=== PATIENT | female | born 1965 | race Caucasian/White ===

== ENCOUNTER 2017-09-10 06:19 | Emergency (ER) | payer SELFPAY | END 2017-09-10 06:31 | disposition left against medical advice (07) | LOC: ERS 06:19 | DX: Z53.21 Procedure and treatment not carried out due to patient leaving prior to being seen by health care provider (principal) | CPT/HCPCS: 99282 ==

== ENCOUNTER 2022-09-02 13:13 | Inpatient (IN) | payer SELFPAY ==
[2022-09-02] MEDS ORDERED: Iopamidol 370 76% 100 ML VIAL ONE (14:54)
[2022-09-02] MEDS ORDERED: Nitroglycerin 0.4 MG TAB (25 Tab Bottle) SL PRN (15:01)
[2022-09-02] MEDS ORDERED: Mag-Al 1200 mg/1200 mg/30 ML UDCUP PO PRN (15:01)
[2022-09-02] MEDS ORDERED: Morphine 2 MG/ML VIAL SLOW IVP PRN (15:01)
[2022-09-02] MEDS ORDERED: Milk Of Magnesia 30 ML UDCUP PO PRN (15:01)
[2022-09-02] MEDS ORDERED: Zolpidem Tartrate 5 MG TAB PO PRN (15:01)
[2022-09-02] MEDS: Sodium Chloride 0.9% 500 ML IV SCH ×2 (17:37→20:10)
[2022-09-02 17:48] LABS: CKMB 5.4 ng/mL (0-6.6)
[2022-09-02 18:02] LABS: Troponin I 0.503 ng/mL (< 0.028)
[2022-09-02] MEDS: TICAGRELOR 90 MG TABLET PO SCH (20:52)
[2022-09-02] MEDS: Rosuvastatin 5 MG TAB PO SCH (21:30)
[2022-09-02 22:16] LABS: CKMB 6.4 ng/mL (0-6.6)
[2022-09-02 22:19] LABS: Troponin I 0.696 ng/mL (< 0.028)
[2022-09-02] MEDS ORDERED: Sulfameth/Trimethoprim DS 800-160mg TAB PO SCH (22:30)
[2022-09-03] MEDS: traMADol HCl 50 MG TAB PO PRN ×4 (00:02→21:18)
[2022-09-03 00:38] LABS: #Eosinphils 0.1 thou/uL (0.0-0.7); #Lymphocytes 2.1 thou/uL (1.20-3.40); #Monocytes 0.7 thou/uL (0.11-0.59); #Neutrophils 7.3 thou/uL (1.40-6.50); %Basophils 0.2 % (0.0-1.0); %Eosinophils 0.9 % (0.0-10.0); %Lymphocytes 20.7 % (21.0-51.0); %Monocytes 6.9 % (0.0-10.0); %Neutrophils 71.4 % (42.0-75.0); Hemoglobin 12.3 g/dL (12.0-16.0); Mean Corpuscular HGB CONC 33.3 g/dL (32.0-36.0); Mean Corpuscular Hemoglobin 30.2 pg (27.0-31.0); Mean Corpuscular Volume 90.5 fl (78.0-98.0); Mean Platelet Volume 8.8 fL (7.4-10.4); Platelet Count 212 10x3/uL (130-400); Red Blood Cell (RBC) Count 4.09 mill/uL (4.20-5.40); White Blood Cell (WBC) Count 10.2 10x3/uL (4.8-10.8)
[2022-09-03 01:43] LABS: SARS-CoV-2 NAA Rapid Test Not Detected (NotDetected)
[2022-09-03 03:58] LABS: ALT (SGPT) 36 U/L (8-55); AST (SGOT) 42 U/L (5-34); Albumin 3.7 g/dL (3.5-5.0); Alkaline Phosphatase 103 U/L (40-110); Anion Gap 11 mmol/L (10-20); BUN (Urea Nitrogen) 15 mg/dL (9.8-20.1); Bilirubin, Total 0.4 mg/dL (0.2-1.2); Calc. Creatinine Clearance 69 mL/min (70-130); Calcium 8.9 mg/dL (7.8-10.44); Carbon Dioxide 19 mmol/L (22-29); Cardiac Risk 7.2 (Less than 4.5); Chloride 107 mmol/L (98-107); Cholesterol 237 mg/dl (< 200 Desired); Estimated GFR 63; Glucose 101 mg/dL (70-105); HDL Cholesterol 33 mg/dL (>60 Neg Risk); LDL Cholesterol, Calculated 169 mg/dL; Potassium 4.4 mmol/L (3.5-5.1); Protein, Total 6.7 g/dL (6.0-8.3); Sodium 133 mmol/L (136-145); Triglycerides 176 mg/dL (Less than 150)
[2022-09-03 04:14] LABS: Free T4 (Free Thyroxine) 0.89 ng/dL (0.70-1.48); Thyroid Stimulating Hormone 3.3941 uIU/mL (0.35-4.94)
[2022-09-03 05:34] VITALS: BMI 32.3
[2022-09-03 05:56] LABS: #Eosinphils 0.1 thou/uL (0.0-0.7); #Lymphocytes 1.7 thou/uL (1.20-3.40); #Monocytes 0.6 thou/uL (0.11-0.59); #Neutrophils 6.8 thou/uL (1.40-6.50); %Basophils 0.2 % (0.0-1.0); %Eosinophils 1.1 % (0.0-10.0); %Lymphocytes 18.1 % (21.0-51.0); %Monocytes 6.3 % (0.0-10.0); %Neutrophils 74.4 % (42.0-75.0); Hemoglobin 12.2 g/dL (12.0-16.0); Mean Corpuscular HGB CONC 33.4 g/dL (32.0-36.0); Mean Corpuscular Hemoglobin 30.3 pg (27.0-31.0); Mean Platelet Volume 9.4 fL (7.4-10.4); Platelet Count 217 10x3/uL (130-400); RBC Distribution Width 13.2 % (11.5-14.5); Red Blood Cell (RBC) Count 4.01 mill/uL (4.20-5.40); White Blood Cell (WBC) Count 9.2 10x3/uL (4.8-10.8)
[2022-09-03] MEDS: Sulfameth/Trimethoprim DS 800-160mg TAB PO SCH ×2 (09:19→21:12)
[2022-09-03] MEDS: Aspirin Chewable 81 MG TAB PO SCH (09:19)
[2022-09-03] MEDS: TICAGRELOR 90 MG TABLET PO SCH ×2 (09:19→21:12)
[2022-09-03] MEDS: Phenazopyridine HCl 100 MG TAB PO PRN ×2 (09:26→17:14)
[2022-09-03] MEDS: Rosuvastatin 5 MG TAB PO SCH (21:12)
[2022-09-04 03:59] LABS: #Eosinphils 0.2 thou/uL (0.0-0.7); #Lymphocytes 1.8 thou/uL (1.20-3.40); #Monocytes 0.6 thou/uL (0.11-0.59); #Neutrophils 5.5 thou/uL (1.40-6.50); %Basophils 0.3 % (0.0-1.0); %Eosinophils 1.9 % (0.0-10.0); %Lymphocytes 21.9 % (21.0-51.0); %Monocytes 7.7 % (0.0-10.0); %Neutrophils 68.1 % (42.0-75.0); Hemoglobin 12.7 g/dL (12.0-16.0); Mean Corpuscular HGB CONC 33.5 g/dL (32.0-36.0); Mean Corpuscular Hemoglobin 30.3 pg (27.0-31.0); Mean Corpuscular Volume 90.5 fl (78.0-98.0); Mean Platelet Volume 8.9 fL (7.4-10.4); Platelet Count 177 10x3/uL (130-400); RBC Distribution Width 13.1 % (11.5-14.5); Red Blood Cell (RBC) Count 4.18 mill/uL (4.20-5.40); White Blood Cell (WBC) Count 8.1 10x3/uL (4.8-10.8)
[2022-09-04 04:23] LABS: ALT (SGPT) 42 U/L (8-55); AST (SGOT) 32 U/L (5-34); Albumin 3.9 g/dL (3.5-5.0); Alkaline Phosphatase 108 U/L (40-110); Anion Gap 13 mmol/L (10-20); BUN (Urea Nitrogen) 17 mg/dL (9.8-20.1); Bilirubin, Total 0.5 mg/dL (0.2-1.2); Calc. Creatinine Clearance 69 mL/min (70-130); Calcium 9.3 mg/dL (7.8-10.44); Carbon Dioxide 21 mmol/L (22-29); Chloride 105 mmol/L (98-107); Estimated GFR 62; Globulin 3.2 g/dL (2.4-3.5); Glucose 92 mg/dL (70-105); Potassium 4.4 mmol/L (3.5-5.1); Protein, Total 7.1 g/dL (6.0-8.3); Sodium 135 mmol/L (136-145)
[2022-09-04] MEDS: TICAGRELOR 90 MG TABLET PO SCH (09:50)
[2022-09-04] MEDS: Aspirin Chewable 81 MG TAB PO SCH (09:50)
[2022-09-04] MEDS: Sulfameth/Trimethoprim DS 800-160mg TAB PO SCH (09:50)
[2022-09-04] MEDS: traMADol HCl 50 MG TAB PO PRN ×2 (09:54→16:45)
[2022-09-04 16:07] VITALS: BP 136/71; TEMP 98.4
[2022-09-04 16:29] LABS: Amphetamine Not Detected (NotDetected); Barbiturates Screen Not Detected (NotDetected); Benzodiazepine Screen Detected (NotDetected); Cocaine Metabolite Screen Not Detected (NotDetected); Methadone Not Detected (NotDetected); Methamphetamine Not Detected (NotDetected); Opiate Screen Detected (NotDetected); Oxycodone Screen Not Detected (NotDetected); Phencyclidine (PCP) Not Detected (NotDetected); THC/Cannabinoid Screen Not Detected (NotDetected); Tricyclic Screen Not Detected (NotDetected)
[2022-09-05] MEDS ORDERED: Lisinopril 2.5 MG TAB PO SCH (09:00)
[2022-10-04] MEDS ORDERED: Clopidogrel Bisulfate 75 MG TAB PO SCH (09:00)
== END 2022-09-04 17:05 | disposition home or self-care (01) | DRG 248 ==
LOC: 2NO 13:58 → CCU 16:46 → 2NO 09-03 17:31
PROVIDERS: ADMIT Internal Medicine Cardiovascular Disease; ATTEND Internal Medicine Cardiovascular Disease
PROC: 02703DZ Dilation of Coronary Artery, One Artery with Intraluminal Device, Percutaneous Approach (ICD-10-PCS; principal; 2022-09-02)
PROC: 4A023N7 Measurement of Cardiac Sampling and Pressure, Left Heart, Percutaneous Approach (ICD-10-PCS; 2022-09-02)
PROC: B2111ZZ Fluoroscopy of Multiple Coronary Arteries using Low Osmolar Contrast (ICD-10-PCS; 2022-09-02)
PROC: B2151ZZ Fluoroscopy of Left Heart using Low Osmolar Contrast (ICD-10-PCS; 2022-09-02)
DX: I21.19 ST elevation (STEMI) myocardial infarction involving other coronary artery of inferior wall (principal); I46.9 Cardiac arrest, cause unspecified; I10 Essential (primary) hypertension; F17.210 Nicotine dependence, cigarettes, uncomplicated; I25.10 Atherosclerotic heart disease of native coronary artery without angina pectoris; Z20.822 Contact with and (suspected) exposure to COVID-19; Z98.890 Other specified postprocedural states; Z79.899 Other long term (current) drug therapy; Z88.8 Allergy status to other drugs, medicaments and biological substances; Z80.9 Family history of malignant neoplasm, unspecified; Z82.49 Family history of ischemic heart disease and other diseases of the circulatory system
CPT/HCPCS: 36415; 80053; 80061; 80306; 82553; 83880; 84439; 84443; 85025; 85347; 92941; 93005; 93010; 93306; 93458; 93798; C1769; C1876; C1887; J2272; J7030; Q9967; U0002

== ENCOUNTER 2022-11-09 19:21 | Inpatient (IN) | payer SELFPAY ==
[2022-11-09] MEDS ORDERED: Ondansetron PF 4 MG/2 ML Vial IVP PRN (21:13)
[2022-11-09] MEDS ORDERED: Nitroglycerin 0.4 MG TAB (25 Tab Bottle) SL PRN (21:14)
[2022-11-09 21:48] LABS: Troponin I 1.143 ng/mL (< 0.028)
[2022-11-09] MEDS ORDERED: traMADol HCl 50 MG TAB ONE (22:04)
[2022-11-09] MEDS ORDERED: Rosuvastatin 5 MG TAB PO SCH (22:30)
[2022-11-09] MEDS: Nitroglycerin 2% Ointment 1 INCH/1 GM Packet TOP SCH (23:43)
[2022-11-09] MEDS: Acetaminophen 325 MG TAB PO PRN (23:51)
[2022-11-10 00:16] LABS: Troponin I 1.525 ng/mL (< 0.028)
[2022-11-10 01:30] LABS: SARS-CoV-2 NAA Rapid Test Not Detected (NotDetected)
[2022-11-10] MEDS: Acetaminophen 325 MG TAB PO PRN ×4 (03:51→23:58)
[2022-11-10 04:35] LABS: #Eosinphils 0.1 thou/uL (0.0-0.7); #Monocytes 0.7 thou/uL (0.11-0.59); #Neutrophils 5.5 thou/uL (1.40-6.50); %Basophils 0.3 % (0.0-1.0); %Eosinophils 0.8 % (0.0-10.0); %Lymphocytes 31.8 % (21.0-51.0); %Monocytes 7.9 % (0.0-10.0); %Neutrophils 59.1 % (42.0-75.0); Hemoglobin 12.5 g/dL (12.0-16.0); Mean Corpuscular HGB CONC 33.8 g/dL (32.0-36.0); Mean Corpuscular Hemoglobin 31.1 pg (27.0-31.0); Mean Corpuscular Volume 91.9 fl (78.0-98.0); Platelet Count 180 10x3/uL (130-400); RBC Distribution Width 12.9 % (11.5-14.5); Red Blood Cell (RBC) Count 4.03 mill/uL (4.20-5.40); White Blood Cell (WBC) Count 9.4 10x3/uL (4.8-10.8)
[2022-11-10 05:12] LABS: Troponin I 2.274 ng/mL (< 0.028)
[2022-11-10 05:16] LABS: Anion Gap 13 mmol/L (10-20); BUN (Urea Nitrogen) 12 mg/dL (9.8-20.1); Calc. Creatinine Clearance 94 mL/min (70-130); Calcium 10.1 mg/dL (7.8-10.44); Carbon Dioxide 20 mmol/L (22-29); Chloride 107 mmol/L (98-107); Estimated GFR 87; Glucose 91 mg/dL (70-105); Sodium 136 mmol/L (136-145)
[2022-11-10] MEDS: Nitroglycerin 2% Ointment 1 INCH/1 GM Packet TOP SCH ×3 (05:23→22:59)
[2022-11-10] MEDS: Clopidogrel Bisulfate 75 MG TAB PO SCH (08:13)
[2022-11-10] MEDS: Aspirin 81 mg Enteric Coated Tablet PO SCH (08:13)
[2022-11-10] MEDS: Lisinopril 2.5 MG TAB PO SCH (08:13)
[2022-11-10 13:27] LABS: Acetaminophen Less than 10.0 mcg/mL (10.0-30.0); Alcohol Less than 10 mg/dL (Less than 10); Salicylate Less than 8.0 mg/dL (15.0-30.0)
[2022-11-10] MEDS: traMADol HCl 50 MG TAB PO PRN ×2 (13:50→21:58)
[2022-11-10 15:53] LABS: Amphetamine Not Detected (NotDetected); Barbiturates Screen Not Detected (NotDetected); Benzodiazepine Screen Not Detected (NotDetected); Cocaine Metabolite Screen Not Detected (NotDetected); Methadone Not Detected (NotDetected); Methamphetamine Not Detected (NotDetected); Opiate Screen Not Detected (NotDetected); Oxycodone Screen Not Detected (NotDetected); Phencyclidine (PCP) Not Detected (NotDetected); THC/Cannabinoid Screen Not Detected (NotDetected); Tricyclic Screen Not Detected (NotDetected)
[2022-11-10] MEDS: Rosuvastatin 5 MG TAB PO SCH (20:35)
[2022-11-10] MEDS ORDERED: FLU VACC QS2022-23(6MO UP)/PF 60 MCG/0.5 ML SYRINGE IM ONE (21:00)
[2022-11-10] MEDS ORDERED: Communication Order-Pharmacy FS SCH (23:45)
[2022-11-11 05:11] LABS: #Basophils 0.1 thou/uL (0.0-0.2); #Eosinphils 0.1 thou/uL (0.0-0.7); #Lymphocytes 2.7 thou/uL (1.20-3.40); #Monocytes 0.6 thou/uL (0.11-0.59); #Neutrophils 4.8 thou/uL (1.40-6.50); %Basophils 0.8 % (0.0-1.0); %Eosinophils 0.6 % (0.0-10.0); %Lymphocytes 32.2 % (21.0-51.0); %Monocytes 7.6 % (0.0-10.0); %Neutrophils 58.7 % (42.0-75.0); Hemoglobin 12.5 g/dL (12.0-16.0); Mean Corpuscular HGB CONC 33.7 g/dL (32.0-36.0); Mean Corpuscular Hemoglobin 30.8 pg (27.0-31.0); Mean Corpuscular Volume 91.3 fl (78.0-98.0); Mean Platelet Volume 8.9 fL (7.4-10.4); Platelet Count 171 10x3/uL (130-400); RBC Distribution Width 12.9 % (11.5-14.5); Red Blood Cell (RBC) Count 4.07 mill/uL (4.20-5.40); White Blood Cell (WBC) Count 8.2 10x3/uL (4.8-10.8)
[2022-11-11] MEDS: Aspirin 81 mg Enteric Coated Tablet PO SCH (05:22)
[2022-11-11] MEDS: Clopidogrel Bisulfate 75 MG TAB PO SCH (05:22)
[2022-11-11] MEDS: Lisinopril 2.5 MG TAB PO SCH (05:22)
[2022-11-11] MEDS: Nitroglycerin 2% Ointment 1 INCH/1 GM Packet TOP SCH ×3 (05:24→22:49)
[2022-11-11 05:42] LABS: Anion Gap 12 mmol/L (10-20); BUN (Urea Nitrogen) 14 mg/dL (9.8-20.1); Calc. Creatinine Clearance 85 mL/min (70-130); Calcium 9.1 mg/dL (7.8-10.44); Carbon Dioxide 25 mmol/L (22-29); Chloride 106 mmol/L (98-107); Estimated GFR 78; Glucose 90 mg/dL (70-105); Potassium 3.9 mmol/L (3.5-5.1); Sodium 139 mmol/L (136-145)
[2022-11-11] MEDS: Acetaminophen 325 MG TAB PO PRN (06:17)
[2022-11-11] MEDS ORDERED: Midazolam HCl 2 mg/2 ml Vial ONE (06:30)
[2022-11-11] MEDS ORDERED: fentaNYL 50 mcg/mL 1 mL Vial ONE (06:31)
[2022-11-11] MEDS ORDERED: Lidocaine 1% (PF) 30 ML VIAL ONE (06:31)
[2022-11-11] MEDS ORDERED: Heparin 10,000 UNITS/ 10 ML VIAL ONE (06:31)
[2022-11-11] MEDS ORDERED: Nitroglycerin 4.9 GM Bottle ONE (07:25)
[2022-11-11] MEDS ORDERED: Nitroglycerin 50 MG/250 ML BOT 250 ML ONE (07:26)
[2022-11-11] MEDS ORDERED: Sodium Chloride 0.9% 200 ML IV PRN (07:58)
[2022-11-11] MEDS ORDERED: Sodium Chloride 0.9% 500 ML IV SCH (08:00)
[2022-11-11] MEDS: Acetaminophen/Codeine 30-300mg Tablet PO PRN ×2 (09:38→17:31)
[2022-11-11] MEDS: traMADol HCl 50 MG TAB PO PRN ×2 (12:56→20:25)
[2022-11-11] MEDS ORDERED: Iopamidol 370 76% 100 ML VIAL ONE (13:24)
[2022-11-11] MEDS ORDERED: Diazepam 5 MG TAB PO PRN (16:50)
[2022-11-11] MEDS ORDERED: Communication Order-Pharmacy FS SCH (16:50)
[2022-11-11] MEDS: Rosuvastatin 5 MG TAB PO SCH (20:25)
[2022-11-12] MEDS: Acetaminophen 325 MG TAB PO PRN ×2 (02:39→17:07)
[2022-11-12 04:59] LABS: #Eosinphils 0.1 thou/uL (0.0-0.7); #Lymphocytes 1.7 thou/uL (1.20-3.40); #Monocytes 0.5 thou/uL (0.11-0.59); #Neutrophils 6.2 thou/uL (1.40-6.50); %Basophils 0.1 % (0.0-1.0); %Eosinophils 0.6 % (0.0-10.0); %Lymphocytes 20.1 % (21.0-51.0); %Monocytes 6.3 % (0.0-10.0); %Neutrophils 72.9 % (42.0-75.0); Hemoglobin 11.8 g/dL (12.0-16.0); Mean Corpuscular HGB CONC 31.5 g/dL (32.0-36.0); Mean Corpuscular Hemoglobin 29.4 pg (27.0-31.0); Mean Corpuscular Volume 93.4 fl (78.0-98.0); Mean Platelet Volume 8.5 fL (7.4-10.4); Platelet Count 189 10x3/uL (130-400); RBC Distribution Width 12.8 % (11.5-14.5); White Blood Cell (WBC) Count 8.5 10x3/uL (4.8-10.8)
[2022-11-12 05:23] LABS: Anion Gap 13 mmol/L (10-20); BUN (Urea Nitrogen) 12 mg/dL (9.8-20.1); Calc. Creatinine Clearance 92 mL/min (70-130); Calcium 9.1 mg/dL (7.8-10.44); Carbon Dioxide 22 mmol/L (22-29); Chloride 107 mmol/L (98-107); Estimated GFR 84; Glucose 109 mg/dL (70-105); Sodium 138 mmol/L (136-145)
[2022-11-12] MEDS: Acetaminophen/Codeine 30-300mg Tablet PO PRN ×2 (05:35→17:21)
[2022-11-12] MEDS: Lisinopril 2.5 MG TAB PO SCH (05:35)
[2022-11-12] MEDS: Nitroglycerin 2% Ointment 1 INCH/1 GM Packet TOP SCH (05:54)
[2022-11-12] MEDS ORDERED: Dexamethasone 4 mg/ml Vial ONE (06:32)
[2022-11-12] MEDS ORDERED: Albumin 5% 500 ML ONE (06:33)
[2022-11-12] MEDS ORDERED: Bupivacaine HCl 0.5%/Epinephrine 1:200,000/PF 30 ml Vial ONE (06:33)
[2022-11-12] MEDS ORDERED: Midazolam HCl 5 mg/5 ml Vial ONE (09:05)
[2022-11-12] MEDS ORDERED: Fentanyl 250 MCG/5 ML VIAL ONE (09:05)
[2022-11-12] MEDS ORDERED: Sodium Chloride 0.9% 100 ML ONE (09:14)
[2022-11-12] MEDS ORDERED: CEFAZOLIN 2 GM VIAL ONE (09:14)
[2022-11-12] MEDS ORDERED: Heparin 10,000 UNITS/ 10 ML VIAL ONE (09:34)
[2022-11-12] MEDS ORDERED: Dexamethasone 20 MG/5 ML VIAL ONE (09:38)
[2022-11-12] MEDS ORDERED: Lidocaine 1% PF 5 ML VIAL ONE (09:38)
[2022-11-12] MEDS ORDERED: Ondansetron PF 4 MG/2 ML Vial ONE (09:38)
[2022-11-12] MEDS ORDERED: Vecuronium 10 MG VIAL ONE (09:38)
[2022-11-12] MEDS ORDERED: PROPOFOL 200 MG/20 ML VIAL ONE (09:38)
[2022-11-12] MEDS ORDERED: GLYCOPYRROLATE/PF 0.2 MG/ML VIAL ONE (09:38)
[2022-11-12] MEDS ORDERED: NEOSTIGMINE 3 MG/3 ML SYR 3 MG/3 ML SYRINGE ONE (09:38)
[2022-11-12] MEDS ORDERED: CEFAZOLIN 2 GM in Sodium Chloride 0.9% 100 ML IVPB SCH ×2 (10:00→16:00)
[2022-11-12] MEDS ORDERED: PHENYLEPHRINE-NS 100 MCG/ML 10 ML SYRINGE ONE (10:38)
[2022-11-12] MEDS ORDERED: Insulin Regular 300 UNITS/3 ML VIAL ONE (11:06)
[2022-11-12] MEDS ORDERED: Potassium Chloride 20 MEQ/100 ML PREMIX BAG IVPB PRN (12:11)
[2022-11-12] MEDS ORDERED: NOREPINEPHRINE 8 MG/250 ML-D5W 250 ML IVPB PRN (12:11)
[2022-11-12] MEDS ORDERED: Bisacodyl 5 MG TAB PO PRN (12:11)
[2022-11-12] MEDS ORDERED: hydrALAZINE 20 MG/ML VIAL SLOW IVP PRN (12:11)
[2022-11-12] MEDS ORDERED: Ipratropium/Albuterol 3 ML NEB NEB PRN (12:11)
[2022-11-12] MEDS ORDERED: Morphine 2 MG/ML VIAL SLOW IVP PRN (12:11)
[2022-11-12] MEDS ORDERED: Guaifenesin DM 100-10/5 ML UDCUP PO PRN (12:11)
[2022-11-12] MEDS ORDERED: Fentanyl 100 MCG/2 ML VIAL SLOW IVP PRN ×2 (12:11)
[2022-11-12] MEDS ORDERED: Bisacodyl 10 MG SUPP PR PRN (12:11)
[2022-11-12] MEDS ORDERED: Ondansetron PF 4 MG/2 ML Vial IVP PRN (12:11)
[2022-11-12] MEDS ORDERED: niCARdipine 25 MG in Sodium Chloride 0.9% 250 ML 250 ML IVPB PRN (12:11)
[2022-11-12] MEDS ORDERED: fentaNYL 50 mcg/mL 1 mL Vial SLOW IVP PRN ×2 (12:24→12:25)
[2022-11-12] MEDS ORDERED: HUMULIN R 100 UNITS in Sodium Chloride 0.9% 100 ML IVPB SCH (12:45)
[2022-11-12] MEDS ORDERED: Dextrose 5% in Water 1,000 ML IV PRN (12:45)
[2022-11-12] MEDS ORDERED: Dextrose 50% Abboject 50 ML SYRINGE SLOW IVP PRN (12:45)
[2022-11-12] MEDS: Potassium Chloride 20 MEQ in Lactated Ringer's 1,000 ML IV SCH (13:16)
[2022-11-12 13:23] LABS: Mean Corpuscular HGB CONC 32.6 g/dL (32.0-36.0); Mean Corpuscular Hemoglobin 30.4 pg (27.0-31.0); Mean Corpuscular Volume 93.2 fl (78.0-98.0); Mean Platelet Volume 8.5 fL (7.4-10.4); Platelet Count 155 10x3/uL (130-400); RBC Distribution Width 12.7 % (11.5-14.5); White Blood Cell (WBC) Count 18.8 10x3/uL (4.8-10.8)
[2022-11-12] MEDS: Ketorolac Tromethamine 30 MG/ML VIAL IVP SCH ×2 (13:26→17:22)
[2022-11-12] MEDS: Insulin Regular 300 UNITS/3 ML VIAL SC PRN (13:29)
[2022-11-12 13:30] LABS: Anion Gap 10 mmol/L (10-20); BUN (Urea Nitrogen) 11 mg/dL (9.8-20.1); Calc. Creatinine Clearance 104 mL/min (70-130); Calcium 7.3 mg/dL (7.8-10.44); Carbon Dioxide 23 mmol/L (22-29); Chloride 114 mmol/L (98-107); Estimated GFR 99; Glucose 123 mg/dL (70-105); Potassium 3.7 mmol/L (3.5-5.1); Sodium 143 mmol/L (136-145)
[2022-11-12 13:52] LABS: INR-International Normal Ratio 1.3; PTT 29.3 sec (22.9-36.1); Prothrombin Time 17.1 sec (12.0-14.7)
[2022-11-12 14:08] LABS: Band 7 % (5-11); Lymphocytes 6 % (21-51); MDiff Complete? YES; Metamyelocyte 1 % (0-0); Monocytes 5 % (0-10); Neutrophil 81 % (42-75); Platelet Morphology Comment Appears Adequate; RBC Morphology Normal
[2022-11-12] MEDS: traMADol HCl 50 MG TAB PO PRN ×2 (15:24→21:03)
[2022-11-12 15:44] VITALS: BMI 34.4
[2022-11-12] MEDS: CEFAZOLIN 2 GM in Sodium Chloride 0.9% 100 ML IVPB SCH (16:12)
[2022-11-12] MEDS: Hetastarch 6% 500 ML 500 ML IVPB PRN ×2 (16:12→21:46)
[2022-11-12] MEDS ORDERED: Acetaminophen/Codeine 30-300mg Tablet PO PRN (17:13)
[2022-11-12] MEDS: Mag-Al 1200 mg/1200 mg/30 ML UDCUP PO PRN (17:30)
[2022-11-12 18:16] LABS: Hemoglobin 7.3 g/dL (12.0-16.0)
[2022-11-12] MEDS ORDERED: Simvastatin 40 MG TAB PO SCH (21:00)
[2022-11-12] MEDS: Famotidine/PF 20 mg/2ml Vial SLOW IVP SCH (21:07)
[2022-11-12] MEDS: Atorvastatin Calcium 20 MG TAB PO SCH (21:46)
[2022-11-12 21:50] LABS: Potassium 4.5 mmol/L (3.5-5.1)
[2022-11-13] MEDS: Ketorolac Tromethamine 30 MG/ML VIAL IVP SCH ×5 (00:54→23:11)
[2022-11-13] MEDS: CEFAZOLIN 2 GM in Sodium Chloride 0.9% 100 ML IVPB SCH ×2 (00:56→08:15)
[2022-11-13] MEDS: traMADol HCl 50 MG TAB PO PRN ×3 (02:59→19:58)
[2022-11-13 04:36] LABS: #Lymphocytes 1.3 thou/uL (1.20-3.40); #Neutrophils 12.1 thou/uL (1.40-6.50); %Basophils 0.1 % (0.0-1.0); %Eosinophils 0.1 % (0.0-10.0); %Lymphocytes 9.3 % (21.0-51.0); %Monocytes 6.9 % (0.0-10.0); %Neutrophils 83.6 % (42.0-75.0); Hemoglobin 6.3 g/dL (12.0-16.0); Mean Corpuscular HGB CONC 34.9 g/dL (32.0-36.0); Mean Corpuscular Hemoglobin 31.8 pg (27.0-31.0); Mean Corpuscular Volume 91.1 fl (78.0-98.0); Mean Platelet Volume 8.9 fL (7.4-10.4); Platelet Count 124 10x3/uL (130-400); RBC Distribution Width 13.4 % (11.5-14.5); Red Blood Cell (RBC) Count 1.96 mill/uL (4.20-5.40); White Blood Cell (WBC) Count 14.4 10x3/uL (4.8-10.8)
[2022-11-13 05:01] LABS: Anion Gap 9 mmol/L (10-20); BUN (Urea Nitrogen) 12 mg/dL (9.8-20.1); Calc. Creatinine Clearance 102 mL/min (70-130); Carbon Dioxide 20 mmol/L (22-29); Chloride 113 mmol/L (98-107); Estimated GFR 92; Glucose 137 mg/dL (70-105); Potassium 4.5 mmol/L (3.5-5.1); Sodium 137 mmol/L (136-145)
[2022-11-13] MEDS ORDERED: Ketorolac Tromethamine 30 MG/ML VIAL ONE (07:12)
[2022-11-13] MEDS: Mag-Al 1200 mg/1200 mg/30 ML UDCUP PO PRN (08:10)
[2022-11-13] MEDS: Magnesium 2 GM/50 ML(in water) 2 GM in Premix Bag 1 BAG IVPB SCH (08:11)
[2022-11-13] MEDS: Famotidine/PF 20 mg/2ml Vial SLOW IVP SCH (08:14)
[2022-11-13] MEDS: Aspirin 325 MG TAB PO SCH (09:20)
[2022-11-13] MEDS: Acetaminophen 325 MG TAB PO PRN (11:29)
[2022-11-13] MEDS ORDERED: Insulin Glargine 30 UNITS/0.3 ML VIAL SC PRN (12:35)
[2022-11-13 12:46] LABS: Glucose 108 mg/dL (70-105)
[2022-11-13] MEDS: Potassium Chloride 20 MEQ in Lactated Ringer's 1,000 ML IV SCH (14:53)
[2022-11-13] MEDS: Acetaminophen/Codeine 30-300mg Tablet PO PRN (16:35)
[2022-11-13 17:10] LABS: Glucose 137 mg/dL (70-105)
[2022-11-13] MEDS: Insulin Regular 300 UNITS/3 ML VIAL SC PRN ×2 (17:21→21:14)
[2022-11-13] MEDS: Atorvastatin Calcium 20 MG TAB PO SCH (20:53)
[2022-11-13] MEDS: Famotidine 20 MG TAB PO SCH (20:53)
[2022-11-13 20:55] LABS: Hemoglobin 8.4 g/dL (12.0-16.0)
[2022-11-13 21:08] LABS: Glucose 131 mg/dL (70-105)
[2022-11-14] MEDS: Insulin Regular 300 UNITS/3 ML VIAL SC PRN (00:25)
[2022-11-14 03:45] LABS: #Lymphocytes 2.3 thou/uL (1.20-3.40); #Monocytes 1.1 thou/uL (0.11-0.59); #Neutrophils 9.7 thou/uL (1.40-6.50); %Basophils 0.2 % (0.0-1.0); %Eosinophils 0.2 % (0.0-10.0); %Lymphocytes 17.8 % (21.0-51.0); %Neutrophils 73.8 % (42.0-75.0); Hemoglobin 8.2 g/dL (12.0-16.0); Mean Corpuscular HGB CONC 33.3 g/dL (32.0-36.0); Mean Corpuscular Hemoglobin 30.2 pg (27.0-31.0); Mean Corpuscular Volume 90.7 fl (78.0-98.0); Mean Platelet Volume 8.9 fL (7.4-10.4); Platelet Count 112 10x3/uL (130-400); RBC Distribution Width 13.1 % (11.5-14.5); Red Blood Cell (RBC) Count 2.73 mill/uL (4.20-5.40); White Blood Cell (WBC) Count 13.1 10x3/uL (4.8-10.8)
[2022-11-14 04:05] LABS: Anion Gap 7 mmol/L (10-20); BUN (Urea Nitrogen) 16 mg/dL (9.8-20.1); Calc. Creatinine Clearance 103 mL/min (70-130); Calcium 7.5 mg/dL (7.8-10.44); Carbon Dioxide 23 mmol/L (22-29); Chloride 110 mmol/L (98-107); Estimated GFR 95; Glucose 110 mg/dL (70-105); Potassium 4.4 mmol/L (3.5-5.1); Sodium 136 mmol/L (136-145)
[2022-11-14] MEDS: traMADol HCl 50 MG TAB PO PRN ×4 (04:42→20:14)
[2022-11-14] MEDS: Potassium Chloride 20 MEQ in Lactated Ringer's 1,000 ML IV SCH (04:46)
[2022-11-14] MEDS: Ketorolac Tromethamine 30 MG/ML VIAL IVP SCH ×3 (06:01→18:32)
[2022-11-14] MEDS: Magnesium 2 GM/50 ML(in water) 2 GM in Premix Bag 1 BAG IVPB SCH (08:41)
[2022-11-14] MEDS: Aspirin 325 MG TAB PO SCH (08:42)
[2022-11-14] MEDS: Famotidine 20 MG TAB PO SCH ×2 (08:42→20:15)
[2022-11-14] MEDS: Acetaminophen 325 MG TAB PO PRN (08:42)
[2022-11-14] MEDS ORDERED: diphenhydrAMINE 25 MG CAP PO PRN (11:40)
[2022-11-14] MEDS ORDERED: Milk Of Magnesia 30 ML UDCUP PO PRN (11:40)
[2022-11-14] MEDS ORDERED: Mineral Oil ENEMA PR PRN (11:40)
[2022-11-14] MEDS ORDERED: Nitroglycerin 0.4 MG TAB (25 Tab Bottle) SL PRN (11:40)
[2022-11-14] MEDS ORDERED: Zolpidem Tartrate 5 MG TAB PO PRN (11:40)
[2022-11-14] MEDS: Acetaminophen/Codeine 30-300mg Tablet PO PRN (15:39)
[2022-11-14] MEDS: Atorvastatin Calcium 20 MG TAB PO SCH (20:16)
[2022-11-15] MEDS: Ketorolac Tromethamine 30 MG/ML VIAL IVP SCH ×3 (00:15→12:03)
[2022-11-15] MEDS: Acetaminophen/Codeine 30-300mg Tablet PO PRN ×3 (04:51→21:19)
[2022-11-15] MEDS: Potassium Chloride 20 MEQ in Lactated Ringer's 1,000 ML IV SCH (04:52)
[2022-11-15 05:25] LABS: #Eosinphils 0.1 thou/uL (0.0-0.7); #Monocytes 0.8 thou/uL (0.11-0.59); #Neutrophils 9.4 thou/uL (1.40-6.50); %Basophils 0.2 % (0.0-1.0); %Lymphocytes 16.3 % (21.0-51.0); %Monocytes 6.2 % (0.0-10.0); %Neutrophils 76.4 % (42.0-75.0); Hemoglobin 8.4 g/dL (12.0-16.0); Mean Corpuscular HGB CONC 35.8 g/dL (32.0-36.0); Mean Corpuscular Hemoglobin 33.1 pg (27.0-31.0); Mean Corpuscular Volume 92.2 fl (78.0-98.0); Mean Platelet Volume 8.4 fL (7.4-10.4); Platelet Count 131 10x3/uL (130-400); RBC Distribution Width 13.2 % (11.5-14.5); Red Blood Cell (RBC) Count 2.53 mill/uL (4.20-5.40); White Blood Cell (WBC) Count 12.3 10x3/uL (4.8-10.8)
[2022-11-15 05:41] LABS: Anion Gap 9 mmol/L (10-20); BUN (Urea Nitrogen) 18 mg/dL (9.8-20.1); Calc. Creatinine Clearance 99 mL/min (70-130); Calcium 8.1 mg/dL (7.8-10.44); Carbon Dioxide 24 mmol/L (22-29); Chloride 105 mmol/L (98-107); Estimated GFR 91; Glucose 107 mg/dL (70-105); Potassium 4.2 mmol/L (3.5-5.1); Sodium 134 mmol/L (136-145)
[2022-11-15] MEDS: Acetaminophen 325 MG TAB PO PRN (09:16)
[2022-11-15] MEDS: Famotidine 20 MG TAB PO SCH ×2 (09:16→21:20)
[2022-11-15] MEDS: Aspirin 325 mg Enteric Coated Tablet PO SCH (09:16)
[2022-11-15] MEDS: traMADol HCl 50 MG TAB PO PRN ×2 (10:28→14:29)
[2022-11-15] MEDS: Atorvastatin Calcium 20 MG TAB PO SCH ×2 (21:21→21:23)
[2022-11-16] MEDS: traMADol HCl 50 MG TAB PO PRN ×3 (01:47→20:15)
[2022-11-16] MEDS: Famotidine 20 MG TAB PO SCH ×2 (07:26→20:15)
[2022-11-16] MEDS: Acetaminophen/Codeine 30-300mg Tablet PO PRN ×2 (07:26→14:37)
[2022-11-16] MEDS: Furosemide 20 MG TAB PO SCH (07:26)
[2022-11-16] MEDS: Aspirin 325 mg Enteric Coated Tablet PO SCH (07:26)
[2022-11-16] MEDS ORDERED: Carvedilol 3.125 MG TAB PO SCH (17:00)
[2022-11-16] MEDS: Atorvastatin Calcium 20 MG TAB PO SCH (20:15)
[2022-11-16] MEDS ORDERED: Metoprolol Tartrate 25 MG TAB PO SCH (21:00)
[2022-11-16] MEDS: Acetaminophen 325 MG TAB PO PRN (22:57)
[2022-11-17] MEDS: traMADol HCl 50 MG TAB PO PRN ×2 (04:26→09:53)
[2022-11-17] MEDS ORDERED: Lisinopril 2.5 MG TAB PO SCH (09:00)
[2022-11-17] MEDS: Furosemide 20 MG TAB PO SCH (09:53)
[2022-11-17] MEDS: Famotidine 20 MG TAB PO SCH (09:54)
[2022-11-17] MEDS: Aspirin 325 mg Enteric Coated Tablet PO SCH (09:54)
[2022-11-17 11:49] VITALS: BP 136/79; TEMP 98.6
[2022-11-18 11:58] LABS: Analyzer IN Cardio OR; Base Excess (BEa) -1.9 mEq/L (-2.0 to +3.0); CO2 Tension 46.2 mmHg (35.0-45.0); Calcium, Ionized (arterial) 1.16 mmol/L (1.12-1.30); Carboxyhemoglobin (COHb) 0.6 gm% (0.0-3.0); Hemoglobin (Hb) 10.1 g/dL (12.0-16.0); O2 Tension (PaO2), arterial 290.5 mmHg (80.0-100.0); Potassium - ABG Lab 3.96 mmol/L (3.70-5.30); pH, Arterial 7.33 (7.35-7.45)
[2022-11-18 11:58] LABS: Actual Bicarbonate (HCO3a) 20.6 mEq/L (22-28); Analyzer IN Cardio OR; Base Excess (BEa) -3.4 mEq/L (-2.0 to +3.0); CO2 Tension 33.4 mmHg (35.0-45.0); Calcium, Ionized (arterial) 1.16 mmol/L (1.12-1.30); Carboxyhemoglobin (COHb) 0.9 gm% (0.0-3.0); Hemoglobin (Hb) 11.6 g/dL (12.0-16.0); O2 Tension (PaO2), arterial 491.9 mmHg (80.0-100.0); Potassium - ABG Lab 4.09 mmol/L (3.70-5.30); pH, Arterial 7.41 (7.35-7.45)
[2022-11-18 11:58] LABS: Actual Bicarbonate (HCO3a) 19.1 mEq/L (22-28); Analyzer IN Cardio OR; Base Excess (BEa) -4.9 mEq/L (-2.0 to +3.0); CO2 Tension 30.9 mmHg (35.0-45.0); Calcium, Ionized (arterial) 1.05 mmol/L (1.12-1.30); Carboxyhemoglobin (COHb) 0.8 gm% (0.0-3.0); Hemoglobin (Hb) 8.3 g/dL (12.0-16.0); O2 Tension (PaO2), arterial 448.5 mmHg (80.0-100.0); Potassium - ABG Lab 4.86 mmol/L (3.70-5.30); pH, Arterial 7.41 (7.35-7.45)
[2022-11-18 11:58] LABS: Actual Bicarbonate (HCO3a) 20.5 mEq/L (22-28); Analyzer IN Cardio OR; CO2 Tension 31.7 mmHg (35.0-45.0); Calcium, Ionized (arterial) 1.12 mmol/L (1.12-1.30); Carboxyhemoglobin (COHb) 0.8 gm% (0.0-3.0); Hemoglobin (Hb) 11.3 g/dL (12.0-16.0); O2 Tension (PaO2), arterial 528.7 mmHg (80.0-100.0); Potassium - ABG Lab 4.43 mmol/L (3.70-5.30); pH, Arterial 7.43 (7.35-7.45)
[2022-11-18 11:59] LABS: Puncture Site Arterial Line
[2022-11-18 11:59] LABS: Puncture Site Arterial Line
[2022-11-18 11:59] LABS: Puncture Site Arterial Line
[2022-11-18 12:00] LABS: Puncture Site Arterial Line
== END 2022-11-17 15:01 | disposition home or self-care (01) | DRG 234 ==
LOC: ERS 19:21 → 2NO 21:12 → CCU 11-12 12:43 → 2NO 11-14 14:41
PROVIDERS: ADMIT Internal Medicine; ATTEND Internal Medicine
PROC: 4A023N7 Measurement of Cardiac Sampling and Pressure, Left Heart, Percutaneous Approach (ICD-10-PCS; principal; 2022-11-11)
PROC: B2111ZZ Fluoroscopy of Multiple Coronary Arteries using Low Osmolar Contrast (ICD-10-PCS; 2022-11-11)
PROC: B2151ZZ Fluoroscopy of Left Heart using Low Osmolar Contrast (ICD-10-PCS; 2022-11-11)
PROC: 021009W Bypass Coronary Artery, One Artery from Aorta with Autologous Venous Tissue, Open Approach (ICD-10-PCS; 2022-11-12)
PROC: 02100Z9 Bypass Coronary Artery, One Artery from Left Internal Mammary, Open Approach (ICD-10-PCS; 2022-11-12)
PROC: 06BP0ZZ Excision of Right Saphenous Vein, Open Approach (ICD-10-PCS; 2022-11-12)
PROC: 5A1221Z Performance of Cardiac Output, Continuous (ICD-10-PCS; 2022-11-12)
PROC: 30233N1 Transfusion of Nonautologous Red Blood Cells into Peripheral Vein, Percutaneous Approach (ICD-10-PCS; 2022-11-12)
PROC: 30233J1 Transfusion of Nonautologous Serum Albumin into Peripheral Vein, Percutaneous Approach (ICD-10-PCS; 2022-11-12)
DX: I21.4 Non-ST elevation (NSTEMI) myocardial infarction (principal); J90 Pleural effusion, not elsewhere classified; J98.11 Atelectasis; E87.1 Hypo-osmolality and hyponatremia; I25.10 Atherosclerotic heart disease of native coronary artery without angina pectoris; I10 Essential (primary) hypertension; E78.5 Hyperlipidemia, unspecified; D64.9 Anemia, unspecified; E66.9 Obesity, unspecified; E87.6 Hypokalemia; Z20.822 Contact with and (suspected) exposure to COVID-19; E83.42 Hypomagnesemia; Z68.37 Body mass index [BMI] 37.0-37.9, adult; I25.2 Old myocardial infarction; Z79.82 Long term (current) use of aspirin; Z79.899 Other long term (current) drug therapy; Z95.5 Presence of coronary angioplasty implant and graft; Z98.51 Tubal ligation status
CPT/HCPCS: 36415; 36416; 36430; 71045; 80048; 80306; 80307; 82805; 84484; 85025; 85610; 85730; 86850; 86900; 86901; 93005; 93010; 93306; 93458; 93798; 97139; 99152; 99153; C1751; C1769; J1100; J1642; J1644; J1650; J1815; J1885; J2001; J2250; J2405; J2704; J3010; J3475; J3480; J3490; J7030; J7120; P9016; P9045; Q9967; S0028; U0002

== ENCOUNTER 2022-11-21 17:19 | Inpatient (IN) | payer SELFPAY ==
[2022-11-21] MEDS ORDERED: Ondansetron PF 4 MG/2 ML Vial IVP PRN (19:17)
[2022-11-21] MEDS ORDERED: Ondansetron ODT 4 MG TAB PO PRN (19:17)
[2022-11-21] MEDS ORDERED: Furosemide 20 MG/2 ML VIAL SLOW IVP SCH (19:30)
[2022-11-21] MEDS: Acetaminophen 325 MG TAB PO PRN (20:24)
[2022-11-21] MEDS ORDERED: Albuterol 200 PUFF (6.7GM INHALER) INH PRN (21:22)
[2022-11-21] MEDS ORDERED: Vancomycin 1.5 GRAM/300 ML BAG 1.5 GM in Premix Bag 1 BAG IVPB SCH (21:30)
[2022-11-21 21:51] VITALS: BMI 31.1
[2022-11-21] MEDS: Cefepime 1 GM in Sodium Chloride 0.9% 100 ML IVPB SCH (21:52)
[2022-11-21] MEDS: Lidocaine 4% Patch TD PRN (21:53)
[2022-11-21] MEDS: Transdermal Patch Removal TOP SCH (21:59)
[2022-11-21 22:27] LABS: Legionella Urinary Ag Negative (Negative); Strep pneumo Urine Ag NEGATIVE (NEGATIVE)
[2022-11-22] MEDS: Acetaminophen 325 MG TAB PO PRN ×4 (01:10→19:49)
[2022-11-22 05:07] LABS: #Eosinphils 0.2 thou/uL (0.0-0.7); #Lymphocytes 1.6 thou/uL (1.20-3.40); #Neutrophils 13.1 thou/uL (1.40-6.50); %Basophils 0.1 % (0.0-1.0); %Eosinophils 1.5 % (0.0-10.0); %Lymphocytes 10.2 % (21.0-51.0); %Neutrophils 82.1 % (42.0-75.0); Hemoglobin 10.1 g/dL (12.0-16.0); Mean Corpuscular HGB CONC 31.8 g/dL (32.0-36.0); Mean Corpuscular Hemoglobin 29.8 pg (27.0-31.0); Mean Corpuscular Volume 93.7 fl (78.0-98.0); Mean Platelet Volume 7.8 fL (7.4-10.4); Platelet Count 447 10x3/uL (130-400); RBC Distribution Width 13.3 % (11.5-14.5); Red Blood Cell (RBC) Count 3.39 mill/uL (4.20-5.40); White Blood Cell (WBC) Count 15.9 10x3/uL (4.8-10.8)
[2022-11-22 05:49] LABS: ALT (SGPT) 9 U/L (8-55); AST (SGOT) 10 U/L (5-34); Albumin 3.4 g/dL (3.5-5.0); Alkaline Phosphatase 73 U/L (40-110); Anion Gap 13 mmol/L (10-20); BUN (Urea Nitrogen) 12 mg/dL (9.8-20.1); Bilirubin, Total 0.6 mg/dL (0.2-1.2); Calc. Creatinine Clearance 87 mL/min (70-130); Calcium 8.9 mg/dL (7.8-10.44); Carbon Dioxide 21 mmol/L (22-29); Chloride 106 mmol/L (98-107); Estimated GFR 86; Glucose 115 mg/dL (70-105); Potassium 3.7 mmol/L (3.5-5.1); Protein, Total 6.4 g/dL (6.0-8.3); Sodium 136 mmol/L (136-145)
[2022-11-22] MEDS ORDERED: Furosemide 20 MG/2 ML VIAL SLOW IVP SCH (09:00)
[2022-11-22] MEDS ORDERED: Mag-Al 1200 mg/1200 mg/30 ML UDCUP PO PRN (09:14)
[2022-11-22] MEDS ORDERED: Lidocaine 4% Patch TD SCH (09:15)
[2022-11-22] MEDS: traMADol HCl 50 MG TAB PO PRN ×3 (09:26→21:12)
[2022-11-22] MEDS: Cefepime 1 GM in Sodium Chloride 0.9% 100 ML IVPB SCH ×2 (09:27→21:12)
[2022-11-22] MEDS ORDERED: Famotidine 20 MG TAB PO SCH (09:30)
[2022-11-22] MEDS: Furosemide 40 MG/4 ML VIAL SLOW IVP SCH (09:39)
[2022-11-22] MEDS: Transdermal Patch Removal TOP SCH ×2 (09:42→21:13)
[2022-11-22 11:02] LABS: INR-International Normal Ratio 1.2; Prothrombin Time 15.4 sec (12.0-14.7)
[2022-11-22] MEDS ORDERED: Vancomycin 1 GM in Premix Bag 1 BAG IVPB SCH (23:00)
[2022-11-23] MEDS ORDERED: Heparin 10,000 UNITS/ 10 ML VIAL FS SCH (01:30)
[2022-11-23] MEDS: traMADol HCl 50 MG TAB PO PRN ×4 (02:59→23:34)
[2022-11-23 05:35] LABS: #Eosinphils 0.3 thou/uL (0.0-0.7); #Lymphocytes 1.6 thou/uL (1.20-3.40); #Monocytes 0.9 thou/uL (0.11-0.59); #Neutrophils 11.7 thou/uL (1.40-6.50); %Basophils 0.3 % (0.0-1.0); %Eosinophils 1.9 % (0.0-10.0); %Lymphocytes 10.9 % (21.0-51.0); %Monocytes 6.1 % (0.0-10.0); Hemoglobin 10.6 g/dL (12.0-16.0); Mean Corpuscular HGB CONC 32.5 g/dL (32.0-36.0); Mean Corpuscular Hemoglobin 30.3 pg (27.0-31.0); Mean Corpuscular Volume 93.3 fl (78.0-98.0); Mean Platelet Volume 7.6 fL (7.4-10.4); Platelet Count 437 10x3/uL (130-400); RBC Distribution Width 13.3 % (11.5-14.5); White Blood Cell (WBC) Count 14.4 10x3/uL (4.8-10.8)
[2022-11-23 05:40] LABS: INR-International Normal Ratio 1.1; Prothrombin Time 14.9 sec (12.0-14.7)
[2022-11-23 05:41] LABS: PTT 37.8 sec (22.9-36.1)
[2022-11-23 05:50] LABS: Albumin 3.6 g/dL (3.5-5.0); Bilirubin, Total 0.6 mg/dL (0.2-1.2); Chloride 102 mmol/L (98-107); Potassium 3.7 mmol/L (3.5-5.1); Sodium 133 mmol/L (136-145)
[2022-11-23 05:51] LABS: Globulin 3.3 g/dL (2.4-3.5); Glucose 117 mg/dL (70-105); Protein, Total 6.9 g/dL (6.0-8.3)
[2022-11-23 05:53] LABS: Carbon Dioxide 21 mmol/L (22-29)
[2022-11-23 05:54] LABS: Alkaline Phosphatase 77 U/L (40-110)
[2022-11-23 05:55] LABS: BUN (Urea Nitrogen) 13 mg/dL (9.8-20.1); Calc. Creatinine Clearance 93 mL/min (70-130); Estimated GFR 92
[2022-11-23 05:56] LABS: AST (SGOT) 13 U/L (5-34)
[2022-11-23 05:57] LABS: ALT (SGPT) 11 U/L (8-55); Magnesium 1.8 mg/dL (1.6-2.6)
[2022-11-23 06:26] LABS: Anion Gap 14 mmol/L (10-20)
[2022-11-23] MEDS: Lidocaine 4% Patch TD SCH (09:34)
[2022-11-23] MEDS: Famotidine 20 MG TAB PO SCH (09:34)
[2022-11-23] MEDS: Furosemide 40 MG/4 ML VIAL SLOW IVP SCH (09:34)
[2022-11-23 11:13] LABS: Pleural Fluid, Protein 4.5 g/dL
[2022-11-23 11:22] LABS: RBC Count-Automated (BF) 554298 /cu.mm; WBC/Nucleated-Auto (BF) 912 /cu.mm
[2022-11-23 11:36] LABS: BF Color Red; Body Fluid Source Thoracentesis Fluid; Clarity Cloudy/Turbid (Clear); Tube # 3
[2022-11-23 12:11] LABS: Fluid, pH - Pleural Fld Greater than 7.50 (7.60 - 7.66)
[2022-11-23 12:26] LABS: BF Segmented Neutrophils 14 %; Cell Count Non Hematic 71 %; Lymphocytes 15 %
[2022-11-23 12:42] LABS: Fluid, pH - Pleural Fld Greater than 7.50 (7.60 - 7.66)
[2022-11-23] MEDS: Acetaminophen 325 MG TAB PO PRN ×2 (13:32→20:23)
[2022-11-23] MEDS ORDERED: Atorvastatin Calcium 40 MG TAB PO SCH ×2 (16:45→21:00)
[2022-11-23] MEDS: Lidocaine 4% Patch TD PRN (21:08)
[2022-11-23] MEDS: Transdermal Patch Removal TOP SCH (21:08)
[2022-11-24] MEDS: traMADol HCl 50 MG TAB PO PRN ×2 (04:22→10:25)
[2022-11-24 04:55] LABS: #Eosinphils 0.3 thou/uL (0.0-0.7); #Monocytes 0.8 thou/uL (0.11-0.59); #Neutrophils 9.7 thou/uL (1.40-6.50); %Basophils 0.2 % (0.0-1.0); %Eosinophils 2.4 % (0.0-10.0); %Lymphocytes 15.5 % (21.0-51.0); %Monocytes 6.5 % (0.0-10.0); %Neutrophils 75.4 % (42.0-75.0); Hemoglobin 10.9 g/dL (12.0-16.0); Mean Corpuscular HGB CONC 32.6 g/dL (32.0-36.0); Mean Corpuscular Hemoglobin 30.1 pg (27.0-31.0); Mean Corpuscular Volume 92.2 fl (78.0-98.0); Mean Platelet Volume 7.7 fL (7.4-10.4); Platelet Count 507 10x3/uL (130-400); RBC Distribution Width 13.2 % (11.5-14.5); Red Blood Cell (RBC) Count 3.61 mill/uL (4.20-5.40); White Blood Cell (WBC) Count 12.9 10x3/uL (4.8-10.8)
[2022-11-24 05:25] LABS: ALT (SGPT) 26 U/L (8-55); AST (SGOT) 30 U/L (5-34); Albumin 3.4 g/dL (3.5-5.0); Alkaline Phosphatase 80 U/L (40-110); Anion Gap 14 mmol/L (10-20); BUN (Urea Nitrogen) 12 mg/dL (9.8-20.1); Bilirubin, Total 0.6 mg/dL (0.2-1.2); Calc. Creatinine Clearance 99 mL/min (70-130); Calcium 9.2 mg/dL (7.8-10.44); Carbon Dioxide 23 mmol/L (22-29); Chloride 100 mmol/L (98-107); Estimated GFR 100; Globulin 3.2 g/dL (2.4-3.5); Glucose 106 mg/dL (70-105); Potassium 3.7 mmol/L (3.5-5.1); Protein, Total 6.6 g/dL (6.0-8.3); Sodium 133 mmol/L (136-145)
[2022-11-24 08:06] VITALS: TEMP 99
[2022-11-24 08:08] VITALS: BP 136/89
[2022-11-24] MEDS ORDERED: Benzonatate 100 MG CAP PO PRN (08:11)
[2022-11-24] MEDS: Furosemide 40 MG/4 ML VIAL SLOW IVP SCH (08:12)
[2022-11-24] MEDS: Lidocaine 4% Patch TD SCH (08:12)
[2022-11-24] MEDS: Famotidine 20 MG TAB PO SCH (08:13)
[2022-11-24] MEDS: Acetaminophen 325 MG TAB PO PRN (08:13)
[2022-11-24] MEDS ORDERED: Aspirin 325 mg Enteric Coated Tablet PO SCH (09:00)
[2022-11-24] MEDS ORDERED: Lisinopril 2.5 MG TAB PO SCH (09:00)
[2022-11-24] MEDS ORDERED: Atorvastatin Calcium 40 MG TAB PO SCH (21:00)
== END 2022-11-24 11:21 | disposition home or self-care (01) | DRG 206 ==
LOC: 2NO 18:18
PROVIDERS: ADMIT Family Medicine; ATTEND Family Medicine
PROC: 0W9B3ZZ Drainage of Left Pleural Cavity, Percutaneous Approach (ICD-10-PCS; principal; 2022-11-21)
DX: J95.89 Other postprocedural complications and disorders of respiratory system, not elsewhere classified (principal); I50.32 Chronic diastolic (congestive) heart failure; J91.8 Pleural effusion in other conditions classified elsewhere; I25.10 Atherosclerotic heart disease of native coronary artery without angina pectoris; E78.5 Hyperlipidemia, unspecified; G89.29 Other chronic pain; M54.50 Low back pain, unspecified; I11.0 Hypertensive heart disease with heart failure; Y83.8 Other surgical procedures as the cause of abnormal reaction of the patient, or of later complication, without mention of misadventure at the time of the procedure; Z95.5 Presence of coronary angioplasty implant and graft; Z95.1 Presence of aortocoronary bypass graft; Z86.74 Personal history of sudden cardiac arrest; I25.2 Old myocardial infarction; Z79.899 Other long term (current) drug therapy; Z79.82 Long term (current) use of aspirin; Z82.49 Family history of ischemic heart disease and other diseases of the circulatory system
CPT/HCPCS: 36415; 71045; 71046; 80053; 82150; 82945; 83615; 83735; 83880; 83986; 84145; 84157; 84478; 85025; 85060; 85610; 85730; 87070; 87116; 87205; 87206; 87449; 87899; 88112; 88305; 89051; J0692; J1644; J1940; J3370; J3370-JW; J3490

== ENCOUNTER 2025-05-02 09:13 | Emergency (ER) | payer OTHER ==
[2025-05-02] MEDS ORDERED: Ketorolac Tromethamine 30 MG (1 mL) VIAL ONE (10:08)
[2025-05-02] MEDS ORDERED: Methocarbamol 500 MG TAB ONE (10:08)
[2025-05-02 10:36] LABS: #Basophils 0.03 10x3/uL (0.0-0.2); #Eosinophils 0.09 10x3/uL (0.0-0.7); #Monocytes 0.39 10x3/uL (0.11-0.59); #Neutrophils 5.41 10x3/uL (1.40-6.50); %Basophils 0.4 % (0.0-1.0); %Eosinophils 1.1 % (0.0-10.0); %Lymphocytes 26.0 % (21.0-51.0); %Monocytes 4.8 % (0.0-10.0); %Neutrophils 66.7 % (42.0-75.0); Hematocrit 39.2 % (36.0-47.0); Hemoglobin 12.6 g/dL (12.0-16.0); Mean Corpuscular Hemoglobin 28.9 pg (27.0-31.0); Mean Corpuscular Volume 89.9 fL (78.0-98.0); Platelet Count 217 10x3/uL (130-400); Red Blood Cell (RBC) Count 4.36 mill/uL (4.20-5.40); White Blood Cell (WBC) Count 8.11 10x3/uL (4.8-10.8)
[2025-05-02 10:56] LABS: ALT (SGPT) 21 U/L (Less than 34); AST (SGOT) 24 U/L (11-34); Albumin 3.8 g/dL (3.1-4.5); Alkaline Phosphatase 97 U/L (40-110); Anion Gap 16 mmol/L (10-20); BUN (Urea Nitrogen) 15 mg/dL (9.8-20.1); Bilirubin, Total 0.2 mg/dL (0.3-1.2); Calc. Creatinine Clearance 0 mL/min (70-130); Calcium 9.0 mg/dL (7.8-10.44); Carbon Dioxide 21 mmol/L (22-29); Chloride 106 mmol/L (98-107); Globulin 3.1 g/dL (2.4-3.5); Glucose 98 mg/dL (70-105); Magnesium 1.8 mg/dL (1.6-2.6); Potassium 4.0 mmol/L (3.5-5.1); Sodium 139 mmol/L (136-145)
== END 2025-05-02 11:21 | disposition home or self-care (01) ==
LOC: ERS 09:13
DX: S46.911A Strain of unspecified muscle, fascia and tendon at shoulder and upper arm level, right arm, initial encounter (principal); R20.2 Paresthesia of skin; M62.838 Other muscle spasm; R29.700 NIHSS score 0; I25.10 Atherosclerotic heart disease of native coronary artery without angina pectoris; I11.0 Hypertensive heart disease with heart failure; I50.9 Heart failure, unspecified; W27.4XXA Contact with kitchen utensil, initial encounter; Y99.0 Civilian activity done for income or pay
CPT/HCPCS: 36415; 80053; 83735; 84484; 85025; 93005; 96372; 99284; J1885

== ENCOUNTER 2025-07-17 10:51 | Emergency (ER) | payer OTHER ==
[2025-07-17] MEDS ORDERED: Acetaminophen 500 MG TAB ONE (11:34)
== END 2025-07-17 12:00 | disposition home or self-care (01) ==
LOC: ERS 10:51
DX: S46.811A Strain of other muscles, fascia and tendons at shoulder and upper arm level, right arm, initial encounter (principal); K08.89 Other specified disorders of teeth and supporting structures; K02.9 Dental caries, unspecified; I11.0 Hypertensive heart disease with heart failure; I50.9 Heart failure, unspecified; I25.10 Atherosclerotic heart disease of native coronary artery without angina pectoris; E78.5 Hyperlipidemia, unspecified; X50.0XXA Overexertion from strenuous movement or load, initial encounter; Z79.82 Long term (current) use of aspirin; Z79.899 Other long term (current) drug therapy
CPT/HCPCS: 99282

== ENCOUNTER 2025-08-13 10:33 | Emergency (ER) | payer OTHER | END 2025-08-13 12:48 | disposition home or self-care (01) | LOC: ERS 10:33 | DX: S50.11XA Contusion of right forearm, initial encounter (principal); I11.0 Hypertensive heart disease with heart failure; I50.9 Heart failure, unspecified; I25.10 Atherosclerotic heart disease of native coronary artery without angina pectoris; E78.5 Hyperlipidemia, unspecified; Z79.82 Long term (current) use of aspirin; Z95.5 Presence of coronary angioplasty implant and graft; Z95.1 Presence of aortocoronary bypass graft; Z79.899 Other long term (current) drug therapy; X58.XXXA Exposure to other specified factors, initial encounter ==